=== PATIENT | female | born 1960 | race Caucasian/White ===

== ENCOUNTER → 2023-11-23 16:53 | Outpatient (REF) | payer BC, SELFPAY | LOC: RAD 16:53 | PROVIDERS: ATTENDING PHYSICIAN Chiropractor; FAMILY PHYSICIAN Internal Medicine | DX: M99.06 Segmental and somatic dysfunction of lower extremity (principal) | CPT/HCPCS: 73564 ==

== ENCOUNTER → 2024-04-28 14:42 | Outpatient (REF) | payer BC, SELFPAY | LOC: WDC 14:42 | PROVIDERS: ATTENDING PHYSICIAN Nurse Practitioner Primary Care | DX: Z13.820 Encounter for screening for osteoporosis (principal); Z12.31 Encounter for screening mammogram for malignant neoplasm of breast | CPT/HCPCS: 77063; 77067 ==

== ENCOUNTER → 2024-07-21 17:44 | Outpatient (REF) | payer BC, SELFPAY | LOC: RAD 17:44 | PROVIDERS: ATTENDING PHYSICIAN Chiropractor; FAMILY PHYSICIAN Nurse Practitioner Primary Care | DX: M99.07 Segmental and somatic dysfunction of upper extremity (principal) | CPT/HCPCS: 73030 ==

== ENCOUNTER 2024-12-25 16:09 | Emergency (ER) | payer BC, SELFPAY ==
[2024-12-25 16:11] VITALS: BP 122/80
--- NOTE | 2024-12-25 22:53 | ED.MUSCINJ ---
HPI-Injury
General
Chief Complaint: Fall
Source: patient
Exam Limitations: none
Time Seen by Provider: 12/25/24 18:39
Nursing documentation reviewed up to this point in time: agreed with
History of Present Illness-Injury
Is this injury a work related problem?: No
Is pt an associate of [facility]/[place]?: No
Initial Injury comments:
Patient reports trip and fall. Denies hitting her head. COmplains of pain to left posterior knee and bilateral posterior ankle. Brought to ED by spouse for eval.
Past History
Past History
ED Past Medical History: None
ED Past Surgical History: None
Social History
Tobacco: Non-smoker
Review of Systems
Review of Systems
Allergies reviewed?: Yes
All Other Systems: ROS reviewed and negative except as documented in HPI and ROS
Constitutional: Reports no symptoms
EENT: Reports no symptoms
Respiratory: Reports no symptoms
Cardiac: Reports no symptoms
ABD/GI: Reports no symptoms
: Reports no symptoms
Musculoskeletal: Reports joint pain (Pain to bilateral lateral ankles, left posterior knee)
Skin: Reports no symptoms
Neurological: Reports no symptoms
Psychiatric: Reports no symptoms
Musculoskeletal Injury Exam
Musculoskeletal Injury Exam
Left Posterior Knee:
Pain with Movement?: Moderate
Tender to palpation?: Moderate
Soft tissue swelling?: None
External deformity and angulation?: None
Joint effusion?: None
Contusion?: None
Hematoma-local bleeding into tissue?: None
Strain- Sprain- Tear (Connective tissue injury)?: Moderate
Crepitus with movement?: No
Joint instability?: No
Malalignment/deformity?: No
Range of motion: Limited
Distal skin color and temperature: normal-warm & good color
Capillary Refill: normal
Normal distal neurovascular exam?: Yes
Peripheral Pulses: posterior tibial (left): 3+, posterior tibial (right): 3+, dorsalis pedis (left): 3+ and dorsalis pedis (right): 3+
Right Lateral Ankle:
Pain with Movement?: Moderate
Tender to palpation?: Moderate
Soft tissue swelling?: Moderate
External deformity and angulation?: None
Joint effusion?: None
Contusion?: None
Hematoma-local bleeding into tissue?: Moderate
Strain- Sprain- Tear (Connective tissue injury)?: Moderate
Crepitus with movement?: No
Joint instability?: No
Malalignment/deformity?: No
Range of motion: Limited
Distal skin color and temperature: normal-warm & good color
Capillary Refill: normal
Normal distal neurovascular exam?: Yes
Left Lateral Ankle:
Pain with Movement?: Moderate
Tender to palpation?: Moderate
Soft tissue swelling?: Moderate
External deformity and angulation?: None
Joint effusion?: None
Contusion?: None
Hematoma-local bleeding into tissue?: Moderate
Strain- Sprain- Tear (Connective tissue injury)?: Moderate
Crepitus with movement?: No
Joint instability?: No
Malalignment/deformity?: No
Range of motion: Limited
Distal skin color and temperature: normal-warm & good color
Capillary Refill: normal
Normal distal neurovascular exam?: Yes
Phy Exam
General Physical Exam
General Presentation: well appearing and no apparent distress
General age: appears stated age
General Skin: warm and dry
General Habitus: normal
General Mental: alert
Neurological Exam
Neurological Exam: alert, oriented x3 and CN II-XII intact
Musculoskeletal Exam
Musculoskeletal Exam: neuro vasc intact and other (Bilaterally achilles intact. No tenderness base of 5ht, proximal tib/fib)
Skin Exam
Skin Exam: normal color, warm/dry and no rash
Psychiatric Exam
Psychiatric Exam: normal mood/affect
Injury Course
Orders/Labs/Results
Orders:
Orders
12/25/24 16:13
CR Ankle - Left Min 3 Views Urgent
Comment:
Reason For Exam: twist and fall
CR Ankle - Right Min 3 Views * Urgent
Comment:
Reason For Exam: twist and fall
CR Knee - Left 4 Or More View* Urgent
Comment:
Reason For Exam: twist and fall
12/25/24 19:04
Ortho Boot Right- Treatment ONCE
Short or tall?: Tall
*Radiology
Radiology exam reviewed: radiology read reviewed
*Pulse Oximetry
SaO2: 99
Oxygen Mode of Delivery: Room air
Patient hypoxic: no
*Critical Care Note
Total Time (30-74mins, 75-104mins- exclusive of procedures): Not Applicable
Update Note
Update Note:
Patient to ED wtih complaitn of bilateral ankle pain and left posterior knee pain. Xray report reviewed. Distal fib fx noted on right. No fx to left knee and left ankle. Placed in ortho boot and will be discharged home to followup with
orthopedics. Govem instructions on s/s to return to ED and she is agreeable to plan. Discharged home with family
ED Attending Note
-
Portions of this chart may have been created with voice recognition software.� Occasional wrong word or��sound alike� substitutions may have occurred due to the inherent limitations of voice recognition software.
Discharge Plan
Departure
Patient Disposition: Home (Routine Discharge)
Date of Disposition: 12/25/24
Time of Disposition: 19:04
Patient with high blood pressure during this ER visit?: No
Condition: Good
Covid-19: Not Applicable
Discharge Problem:
Ankle fracture, right, Left ankle sprain, Knee sprain
Instructions: Ankle fracture, Cold therapy for pain, Sprain
Prescriptions:
No Action
cyclobenzaprine 10 MG tablet
10 mg PO TIDPRN PRN (Reason: pain) Qty: 20 0RF
ibuprofen 600 MG tablet
600 mg PO Q6 Qty: 20 0RF
Referrals:
Sharmaine Lawler I., DO [[facility], Orthopedics] - Call in 1-3 days for appt
UNKNOWN - PT DOES,NOT KNOW [Family Provider]
Interventions
Interventions:
*Risk Screen - Suicide Last Done: 12/25/24 19:30
*General Assessment Last Done: 12/25/24 19:30
*Neglect/Abuse Screening Last Done: 12/25/24 19:30
*ED- Fall Risk Assessment Last Done: 12/25/24 19:30
*Nursing Disposition Last Done: 12/25/24 19:57
ED-Musculoskeletal Assessment Last Done: 12/25/24 19:56
ED- Neurological Assessment Last Done: 12/25/24 19:56
ED-Skin Assessment Last Done: 12/25/24 19:56
Discharge Date and Time
Discharge Date/Time: 12/25/24 19:57
Print Language: SYRIAC
== END 2024-12-25 19:57 | disposition home or self-care (01) ==
LOC: EMR 16:09
PROVIDERS: EMERGENCY PHYSICIAN Emergency Medicine
DX: S82.831A Other fracture of upper and lower end of right fibula, initial encounter for closed fracture (principal); S83.91XA Sprain of unspecified site of right knee, initial encounter; S93.402A Sprain of unspecified ligament of left ankle, initial encounter; S90.02XA Contusion of left ankle, initial encounter; S90.01XA Contusion of right ankle, initial encounter; W01.0XXA Fall on same level from slipping, tripping and stumbling without subsequent striking against object, initial encounter; E03.9 Hypothyroidism, unspecified
CPT/HCPCS: 99283; 29515; 73564; 73610

== ENCOUNTER → 2025-05-03 17:01 | Outpatient (REF) | payer BC, SELFPAY | LOC: WDC 17:01 | PROVIDERS: ATTENDING PHYSICIAN Nurse Practitioner Primary Care | DX: Z12.31 Encounter for screening mammogram for malignant neoplasm of breast (principal) | CPT/HCPCS: 77063; 77067 ==